=== PATIENT | male | born 1980 | race Caucasian/White ===

== ENCOUNTER → 2019-06-11 11:28 | Outpatient (BNVA) | payer MEDICAID, SELFPAY | PROVIDERS: Family Provider Nurse Practitioner; PCP Nurse Practitioner Family; Visit Provider Nurse Practitioner Family | DX: I10 Essential (primary) hypertension (principal); K21.9 Gastro-esophageal reflux disease without esophagitis; E78.5 Hyperlipidemia, unspecified; F41.9 Anxiety disorder, unspecified; F32.9 Major depressive disorder, single episode, unspecified; L30.9 Dermatitis, unspecified | CPT/HCPCS: 80053; 80061; 85025 ==

== ENCOUNTER → 2019-07-09 11:25 | Outpatient (BNVA) | payer MEDICAID, SELFPAY | PROVIDERS: Family Provider Nurse Practitioner; PCP Nurse Practitioner Family; Visit Provider Nurse Practitioner Family | DX: E87.5 Hyperkalemia (principal) | CPT/HCPCS: 80048; 85025 ==

== ENCOUNTER → 2019-08-22 15:45 | Outpatient (BNVA) | payer MEDICAID, SELFPAY | PROVIDERS: Family Provider Nurse Practitioner; PCP Nurse Practitioner Family; Visit Provider Family Medicine | DX: F41.9 Anxiety disorder, unspecified (principal); K21.9 Gastro-esophageal reflux disease without esophagitis; E87.5 Hyperkalemia; E78.5 Hyperlipidemia, unspecified; F32.9 Major depressive disorder, single episode, unspecified | CPT/HCPCS: 80048 ==

== ENCOUNTER 2019-11-19 09:48 | Emergency (ER) | payer MEDICAID, SELFPAY ==
[2019-11-19 09:49] VITALS: BP 129/87; PULSE 70; RESP 16; TEMP 36.5; O2SAT 93; BMI 27.7
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
[2019-11-19 10:21] LABS: Basophils % 0.3 %; Eosinophils # 0.3 10^3/uL (0.0-0.8); Eosinophils % 2.4 %; Hematocrit 44.9 % (42.0-52.0); Hemoglobin 15.1 g/dL (11.7-16.6); Lymphocytes # 1.9 10^3/uL (0.8-4.8); Lymphocytes % 14.6 %; Mean Corpuscular HGB Conc 33.6 g/dL (30.0-36.0); Mean Corpuscular Hemoglobin 30.9 pg (28.0-34.0); Mean Platelet Volume 10.5 fL (7.4-10.4); Monocytes # 0.9 10^3/uL (0.2-0.9); Monocytes % 6.6 %; Neutrophils # 9.83 10^3/uL (1.8-7.7); Neutrophils % 75.7 %; Nucleated Red Blood Cells % 0 %; Platelet Count 314 10^3/cmm (130-400); Red Blood Count 4.88 10^6/uL (4.1-5.3); Red Cell Distribution Width 13.3 % (12.1-15.1)
[2019-11-19 10:42] LABS: Alanine Aminotransferase 18 U/L (0-41); Albumin Level 4.4 g/dL (3.5-5.2); Alkaline Phosphatase 91 IU/L (40-130); Anion Gap 15.5 (5-19); Aspartate Amino Transferase 21 U/L (0-40); Blood Urea Nitrogen 13 mg/dL (6-20); Calcium 9.1 mg/dL (8.5-10.5); Carbon Dioxide 25 mmol/L (22-29); Chloride 104 mmol/L (98-107); Globulin 2.9 g/dL (1.3-4.6); Glomerular Filtration Rate 107.1 mL/min (90-130); Glucose 109 mg/dL (65-115); Osmolality Calculated 287 mOsm/kg (285-295); Potassium 4.5 mmol/L (3.5-5.1); Sodium 140 mmol/L (136-145); Total Bilirubin 0.3 mg/dL (0.15-1.2); Total Protein 7.3 g/dL (6.6-8.7)
== END 2019-11-19 11:13 | disposition left against medical advice (07) ==
LOC: ER 12-12 09:26
PROVIDERS: Emergency Provider Family Medicine; Family Provider Nurse Practitioner; PCP Nurse Practitioner Family
DX: R07.89 Other chest pain (principal); W22.11XA Striking against or struck by driver side automobile airbag, initial encounter; V99.XXXA Unspecified transport accident, initial encounter; E78.5 Hyperlipidemia, unspecified; Z86.19 Personal history of other infectious and parasitic diseases; F17.210 Nicotine dependence, cigarettes, uncomplicated
CPT/HCPCS: 12345; 36415; 73551; 73552; 73562; 80053; 85025; 99281

== ENCOUNTER → 2019-11-21 16:50 | Outpatient (BNVA) | payer MEDICAID, SELFPAY | PROVIDERS: Family Provider Nurse Practitioner; PCP Nurse Practitioner Family; Visit Provider Nurse Practitioner Family | DX: R07.9 Chest pain, unspecified (principal); F41.9 Anxiety disorder, unspecified; E78.5 Hyperlipidemia, unspecified; K21.9 Gastro-esophageal reflux disease without esophagitis; F32.9 Major depressive disorder, single episode, unspecified; R07.81 Pleurodynia; Z68.29 Body mass index [BMI] 29.0-29.9, adult; F17.210 Nicotine dependence, cigarettes, uncomplicated; Z71.89 Other specified counseling | CPT/HCPCS: 80053; 80061; 85025 ==

== ENCOUNTER → 2020-01-01 09:05 | Outpatient (BNVA) | payer MEDICAID, SELFPAY | PROVIDERS: Family Provider Nurse Practitioner; PCP Nurse Practitioner Family; Visit Provider Family Medicine | DX: R07.9 Chest pain, unspecified (principal) | CPT/HCPCS: 71046; 71100 ==

== ENCOUNTER 2020-05-11 19:47 | Inpatient (IN) | payer MEDICAID, SELFPAY ==
[2020-05-11 20:02] VITALS: BP 165/99; PULSE 82; RESP 16; TEMP 36.5; O2SAT 99; BMI 26.6
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
[2020-05-11 20:49] LABS: Basophils # 0.1 10^3/uL (0.0-0.1); Basophils % 0.5 %; Eosinophils # 0.3 10^3/uL (0.0-0.8); Eosinophils % 2.7 %; Hematocrit 45.3 % (42.0-52.0); Hemoglobin 14.6 g/dL (11.7-16.6); Lymphocytes % 17.6 %; Mean Corpuscular HGB Conc 32.2 g/dL (30.0-36.0); Mean Corpuscular Hemoglobin 29.3 pg (28.0-34.0); Mean Platelet Volume 10.6 fL (7.4-10.4); Monocytes # 0.8 10^3/uL (0.2-0.9); Monocytes % 7.5 %; Neutrophils % 71.3 %; Nucleated Red Blood Cells % 0 %; Platelet Count 339 10^3/cmm (130-400); Red Blood Count 4.98 10^6/uL (4.1-5.3); Red Cell Distribution Width 12.9 % (12.1-15.1); White Blood Count 11.1 10^3/uL (4.0-10.0)
[2020-05-11 21:04] LABS: Alanine Aminotransferase 16 U/L (0-41); Alkaline Phosphatase 107 IU/L (40-130); Anion Gap 12.1 (5-19); Aspartate Amino Transferase 25 U/L (0-40); Blood Urea Nitrogen 12 mg/dL (6-20); Calcium 9.3 mg/dL (8.5-10.5); Carbon Dioxide 28 mmol/L (22-29); Chloride 103 mmol/L (98-107); Globulin 3.1 g/dL (1.3-4.6); Glomerular Filtration Rate 82.3 mL/min (90-130); Glucose 107 mg/dL (65-115); Osmolality Calculated 288 mOsm/kg (285-295); Potassium 4.1 mmol/L (3.5-5.1); Sodium 139 mmol/L (136-145); Total Bilirubin 0.4 mg/dL (0.15-1.2); Total Protein 7.1 g/dL (6.6-8.7)
[2020-05-11 21:08] LABS: Acetaminophen < 5.0 ug/mL (10-30); Alcohol Level < 10 mg/dL (0-10); Salicylate < 0.3 mg/dL (3-10)
[2020-05-11 21:29] LABS: Amphetamines Screen Urine Positive (Negative); Barbiturates Screen Urine Negative (Negative); Benzodiazepines Screen Urine Negative (Negative); Cocaine Screen Urine Negative (Negative); Opiate Screen Urine Negative (Negative); PCP Screen Urine Negative (Negative); THC Screen Urine Positive (Negative)
[2020-05-12 00:41] VITALS: BP 130/86; PULSE 114; RESP 19; TEMP 37.3; O2SAT 95
[2020-05-12] MEDS: hyDROXYzine 25 mg Capsule 50 MG PO ×2 (01:45→20:02)
[2020-05-12] MEDS: OLANZapine 5 mg ODT PO (01:45)
[2020-05-12] MEDS: trazodone 50 mg Tablet PO ×2 (01:45→20:01)
[2020-05-12 06:00] VITALS: BP 103/66; PULSE 114; RESP 16; TEMP 37.3; O2SAT 96
[2020-05-12] MEDS: pantoprazole DR 40 mg Tablet PO ×2 (08:31→18:12)
[2020-05-12] MEDS: atorvastatin 40 mg Tablet 20 MG PO (08:31)
[2020-05-12] MEDS: citalopram 20 mg Tablet PO (08:32)
--- NOTE | 2020-05-12 10:04 | ECG_ITS ---
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 Measurements Intervals [place] Rate: 93 P: 80 NE: 147 QRS: 81 QRSD: 96 T: 56 QT: 352 QTc: 438 Interpretive Statements SINUS RHYTHM No previous ECG available for comparison Electronically Signed On 05-12-2020 18:53:39 PHOTOGRAPHER by Abimbola Aceves M.D. [id number]
--- NOTE | 2020-05-12 10:10 | P.HP_ITS ---
Providers/Chief Complaint Admitting Physician: Juan Jose Matthew DO Primary Care Provider: DAHLIA Turner Chief Complaint: SI HPI NPU History of Present Illness Manjit Lr is a 39 year old male with longstanding hx of polysubstance abuse, depression and anxiety presented to the ED by police secondary to suicidal ideation. Patient became agitated and stated that he was going to harm himself and started punching himself. There was some initial confusion that the patient had been put on a 96-hour hold but subsequently was allowed to sign in to the inpatient psychiatry unit. Patient was initially extremely agitated refusing to speak to the interviewer and started punching hall and posturing, threatening others and security was called. Patient subsequently was verbally and behaviorally redirected and participated in interview. Patient had punched hall with both hands and was also slapping and punching himself in the face causing his hand wound to reopen and bleed. Patient reports no current depressive symptoms but states that he has been under a lot of stress secondary to multiple stressors to include pressure from his landlord, family friction, ongoing financial issues. Patient also states that he was upset about medication changes that he been made over the years and not feeling like his medication had been working for him. Patient currently followed by primary care for his medication management of Celexa 20 mg daily whritchie escobedo she says has not been helping him as much as Celexa 20 mg twice daily. Patient reports recent methamphetamine use, states that he had been using IV dope every couple days for the past couple weeks secondary to increased stress. Patient also reports near daily marijuana use at bedtime after his Celexa dose was taken away in the evening. Patient unable to state when the last time he had had substance treatment but reports that he was looking into going to celebrate recovery. Patient currently denying any suicidal ideation or homicidal ideation. Patient denying any psychotic symptoms, denies any auditory hallucinations, denying any visual donations, denying any delusions. Of note, patient has remote history of hanging himself with reported history of anoxic brain injury although unable to verify on chart. Patient currently agreeable to inpatient hospitalization and medication st abilization as well as observation for any return of suicidal ideation. Review of Systems General: Reports: ROS unobtainable due to medical condition Meds NPU Home Medications Medication Instructions Recorded Confirmed Last Taken Type atorvastatin 20 mg tablet 20 mg PO DAILY #30 tab 02/18/20 05/12/20 Unknown Rx hydroxyzine pamoate 25 mg capsule 25 mg PO BID PRN #60 cap 02/18/20 05/12/20 Unknown Rx omeprazole 20 mg capsule,delayed 20 mg PO BID #60 cap 02/18/20 05/12/20 Unknown Rx release citalopram 20 mg tablet 20 mg PO DAILY #30 tab 05/05/20 05/12/20 Unknown Rx Allergies Allergy/AdvReac Type Severity Reaction Status Date / Time morphine Allergy Unknown Unknown Verified 11/21/19 14:46 acetaminophen Allergy ALGY-Swell Verified 11/21/19 14:46 Lip/Tongue/Throat aspirin Allergy ALGY-Rash Verified 11/21/19 14:46 bacitracin Allergy ALGY-Hives Verified 05/11/20 20:09 [From Triple Antibiotic] insect venom Allergy ALGY-Anaphy Verified 11/21/19 14:46 laxis neomycin Allergy ALGY-Hives Verified 05/11/20 20:09 [From Triple Antibiotic] Penicillins Allergy ALGY-Rash Verified 11/21/19 14:46 polymyxin B Allergy ALGY-Hives Verified 05/11/20 20:09 [From Triple Antibiotic] PFSH NPU PFSH: Medical History (Updated 05/12/20 @ 10:33 by Juan Jose Matthew DO) Anxiety and depression Hepatitis C Hyperlipidemia Surgical History History of excision of pilonidal cyst Hx of arthroscopy of left knee Hx of cholecystectomy Hx of rhinoplasty Family History Grandmother Diabetes Hypertension Mother Diabetes Father Hypertension Social History Smoking and tobacco status: current every day smoker cigarettes Packs smoked per day: 1 Years cigarettes smoked: 20 Second hand smoke exposure: Yes Alcohol intake: never Lives independently: Yes Household members: spouse Housing: House Marital status: Current occupational status: disabled History of recent travel: No Current gender identity: Male Other Psychiatric History: Other Psychiatric History: Patient does not provide details about past psychiatric history other than he had previously been seen by a mental health prescriber and most recently got his medication from his primary care Does not provide information about past psychiatric hospitalizations Reports remote history of trying to hang himself in the context of dope intoxication Mental Status Exam MSE Comments: Disheveled, unkempt, unshaven, tired appearing with swollen right eye with bruising, irritable, poor rapport with interviewer but subsequently calm and cooperative, fair eye contact Psychomotor activity was occasionally restless during interview, no agitation during interview although previously per above verbally and physically agitated requiring redirection Speech is normal rate and volume, spontaneous, fair articulation, not pressured I am mad, congruent affect, labile Alert and oriented to person, place, time, situation Remote and recent memory is fair at best, limited assessment secondary to participation in interview Concentration is fair at best per interview Intellectual functioning appears to be below to average at best based on vocabulary, interview Thought process, linear, no flight of ideas, no looseness of association Thought content, some perseveration about events leading to his hospitalization, overvalued ideas, no stated delusions, does not appear to be attending to any internal stimuli, no suicidal or homicidal ideation Insight and judgment appear to be limited to fair at best based on patient's lack of understanding of the events leading to his hospitalization as well as safety concerns regarding recent events and need for current and post discharge treatment Vitals/I&O/Wt Last Vital Signs Temp 99.1 F 05/12/20 06:00 Pulse 114 H 05/12/20 06:00 Resp 16 05/12/20 06:00 BP 103/66 05/12/20 06:00 Pulse Ox 96 05/12/20 06:00 Weight last 48 hrs Weight 104.326 kg Data NPU : 05/11/20 20:15 05/11/20 20:15 A&P Assessment and plan (1) Suicidal ideation: Status: Acute (2) Polysubstance abuse: Status: Acute (3) Methamphetamine abuse: Status: Acute (4) Cannabis abuse: Status: Acute (5) Adjustment disorder with mixed disturbance of emotions and conduct: Status: Acute Additional A&P Information Patient initially presented to the emergency department by police on what was understood to be a 96-hour hold for erratic behavior and suicidal ideation with self-harm behavior of punching himself in the head although subsequently allowed to sign in from the emergency department. Patient became extremely agitated punching holes in the wall and threatening others. Patient subsequently redirected and agreeable to evaluation, medication stabilization and would likely benefit from adjustment of his antidepressant targeting mood and affect lability. Of note, patient has history of anoxic brain injury per report (due to previous hanging attempt several years ago?) and continues to abuse substances further exacerbated his clinical picture. VOLUNTARY ADMIT to inpatient psychiatry INCREASED to citalopram 20 mg twice daily targeting depressive and anxiety symptoms RESTART home medication X-ray left and right hand to rule out fractures ECG for baseline QTC Discussed need to abstain from the use of substances with patient Coordinate with social work for post discharge substance counseling and psychiatric follow-up Involuntary Hold Information 96 Hour Hold: 96 Hour Involuntary Admission: No Attestations NPU Medical Necessity Statement*: Patient requires psychiatric hospitalization for observation as well as medication stabilization and coordination for safe discharge to include post discharge psychiatric follow-up. Anticipate patient's hospital stay to exceed 2 midnights Time Spent in Patient Care: Greater than 35 minutes (>than 50% of time spent in counselling and/or direct pt care on unit) . 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
--- NOTE | 2020-05-12 10:14 | PC.NURSE ---
Code 10 Patient Behavior Patient became agitated and started pacing the halls. Stating he wanted to go home, explained that he would need to talk to the physician. When physician attempted to speak with him about a plan of his staying one for night he became more agitated and started punching the hall and his face. Started yelling that he was being lied to. A code 10 was called at 0921. Patient was offered medications to calm his nerves and he refused. He was yelling at the physician and security and staff. He continued pacing, punching holes in hall and punching his face. Verbal de escalation was not working at this point so a call was made to [place] [employer]. Two officers arrived at 0937 and talked with the patient. He began to calm and agreed to have a sit down appropriate conversation with the physician to discuss a change in his medication at 0945. Code 10 successfully verbally de escalated.
--- NOTE | 2020-05-12 10:32 | XR_ITS ---
WS: [id number] RIGHT HAND: 3 VIEW(S) TECHNIQUE: PA, oblique and lateral. HISTORY: punching hall COMPARISON: None available. No acute fracture or dislocation. Moderate soft tissue edema along the medial hand. No acute fracture is identified. XR/XR hand RT min 3V* [id number] IMPRESSION: Soft tissue edema along the medial hand.
--- NOTE | 2020-05-12 10:32 | XR_ITS ---
WS: [id number] LEFT HAND: 3 VIEW(S) TECHNIQUE: PA, oblique and lateral. HISTORY: punching hall COMPARISON: 12/18/2018 No acute fracture or dislocation. Soft tissue edema along the medial hand. There is an osseous density which is well-corticated medial to the hamate. No acute fracture. XR/XR hand LT min 3V* [id number] IMPRESSION: Soft tissue edema along the medial hand. No fracture.
[2020-05-12 14:00] VITALS: BP 136/82; PULSE 82; RESP 18; TEMP 36.4; O2SAT 96
[2020-05-12] MEDS: hyDROXYzine 25 mg Capsule PO (15:28)
[2020-05-12 19:45] VITALS: BP 145/80; PULSE 82; RESP 18; TEMP 36.5; O2SAT 97
[2020-05-12] MEDS: OLANZapine 10 mg TABLET PO (20:02)
[2020-05-13 06:26] VITALS: BP 126/77; PULSE 100; RESP 18; TEMP 36.6; O2SAT 95
[2020-05-13] MEDS: citalopram 20 mg Tablet PO (07:33)
[2020-05-13] MEDS: atorvastatin 40 mg Tablet 20 MG PO (07:33)
[2020-05-13] MEDS: pantoprazole DR 40 mg Tablet PO (07:34)
[2020-05-13 07:48] VITALS: BP 126/77; PULSE 100; RESP 18; TEMP 36.6; O2SAT 95
--- NOTE | 2020-05-13 08:05 | P.DS_ITS ---
Diagnoses at Discharge Discharge Diagnosis (1) Suicidal ideation: Status: Acute (2) Polysubstance abuse: Status: Acute (3) Methamphetamine abuse: Status: Acute (4) Cannabis abuse: Status: Acute (5) Adjustment disorder with mixed disturbance of emotions and conduct: Status: Acute Reason for Visit Reason for Visit: SI Hospital Course Hospital Course 39 year old male with longstanding hx of polysubstance abuse, depression and anxiety presented to the ED by police secondary to suicidal ideation. Prior to being brought to the hospital by police he had become agitated and stated that he was going to harm himself and started punching himself. There was some initial confusion that the patient had been put on a 96-hour hold but subsequently was allowed to sign in to the inpatient psychiatry unit. At the time of initial evaluation the patient was initially extremely agitated refusing to speak to the interviewer and started punching hall and posturing, threatening others and security was called. Patient subsequently was verbally and behaviorally redirected and participated in interview. Patient had punched hall with both hands and was also slapping and punching himself in the face ca using his hand wound to reopen and bleed. Patient had no subsequent behavioral disturbances and was redirectable but continued to pace hallways intermittently. X-rays were obtained for his left and right hands but did not demonstrate any fractures. He was started on his home medication of citalopram 20 mg daily which she tolerated well with no reports of any medication side effects. There was some thought of increasing his citalopram dose to citalopram 20 mg twice daily which he reports he had previously been on but had not made this increase secondary to not having in the appropriate amount of time to monitor. Patient would also benefit from starting prazosin 1 mg at bedtime targeting nightmares but was not started secondary to not having adequate amount of time to monitor this medication change. Patient requested to leave the hospital secondary to having court the following morning and at that time did not endorse any suicidal ideation or demonstrate any psychotic behavior or any sequela from his recent substance use. He did not appear to pose an imminent threat of harm to self or others at the time of discharge. Low to moderate risk of harm to self or others given no current suicidal ideation or homicidal ideation and no current psychotic symptoms and no current mood symptoms although patient's risk continues to be elevated secondary to reported history of anoxic brain injury which likely leads to mood lability as well as if he continues to abuse substances and is noncompliant with medication medication management follow-up leading to unexpected, impulsive behavior. Patient has a longstanding history of impulsive behavior and behavioral disturbances exacerbated by ongoing substance use which cannot be predicted. Risk medication included psychiatric hospitalization for observation for any worsening suicidal ideation or mood symptoms; coordination for post discharge follow-up; recommendation to abstain from the use of substances and alcohol as well as the need for compliance with his medication, medication management and substance counseling follow-up. Patient was able to communicate his understanding of the above recommendations to include medication and medication management compliance; the need to abstain from the use of substances and alcohol as well as the need for substance counseling/treatment in order to further mitigate his risk of harm to self and others. Involuntary Hold Information 96 Hour Hold: 96 Hour Involuntary Admission: No Mental Status Exam MSE Comments: Appropriately dressed, unkempt, swollen right eye with bruising, calm, cooperative, interactive, polite, good eye contact Psychomotor activity is neither increased nor decreased, no agitation Speech is normal rate and volume, spontaneous, fair articulation, not pressured I am feeling better, congruent affect, not labile Alert and oriented to person, place, time, situation Memory and concentration appear to be fair to intact per interview Intellectual functioning appears to be below to average at best based on vocabulary, interview Thought process, linear, no flight of ideas, no looseness of associations Thought content, no delusions, no hallucinations, no suicidal or homicidal ideation Insight and judgment appear to be fair to intact Discharge Data Data Completed and Pending: Completed Studies During Hospitalization Category Date Time Status CT facial bones w o con* [id number] Urgen t Cat Scan 05/11/20 20:15 Completed XR hand LT min 3V * [id number] Routine Exams 05/12/20 10:32 Completed XR hand RT min 3V * [id number] Routine Exams 05/12/20 10:32 Completed Vitals: Last Vital Signs Temp 97.8 F 05/13/20 07:48 Pulse 100 05/13/20 07:48 Resp 18 05/13/20 07:48 BP 126/77 05/13/20 07:48 Pulse Ox 95 05/13/20 07:48 Discharge Plan Discharge Patient Disposition: Home Condition: Stable Prescriptions: Continued atorvastatin [Lipitor] 20 mg tablet 20 mg PO DAILY Qty: 30 RF: 2 omeprazole 20 mg capsule,delayed release(DR/EC) 20 mg PO BID Qty: 60 RF: 2 hydroxyzine pamoate 25 mg capsule 25 mg PO BID PRN (Reason: anxiety) Qty: 60 RF: 2 citalopram 20 mg tablet 20 mg PO DAILY Qty: 30 RF: 0 Discharge Orders: Discharge Order (Routine); Ordered 05/13/20 Ordered By: Juan Jose Matthew Referrals: [facility] [Other] (Held at [facility] at 7pm) [facility] [Outside] (Intake paperwork completed while at the hospital. Staff will call you with an appointment once your referral has been processed.) [facility] [Outside] (Resource for inpatient and outpatient substance abuse treatment.) Leena Munguia FNP [Primary Care Provider] - Discharge Diet: Regular Discharge Activity: Resume usual activity Patient Instructions: Suicidal Ideation Activity Restrictions/Additional Instructions: Medicaid Transport ([employer]): For transportation to appointments call at least 5 days in advance of the appointment. When using Medicaid Transport/[employer] you will need the following information when requesting a ride: - name, date of , address, phone number, and Medicaid number -address, and phone number of where you are going; -date and time of the appointment; -any special needs, such as wheelchair van If for some reason the ride does not show up you may call the Where's My Ride number at Discharge Attestations NPU Time Spent in Discharge Care*: greater than 30 min Status at Discharge: Cognitive status at discharge: cognitively intact , Behavioral status at discharge: cooperative , Functional status at discharge: independent ambulation Overall status at discharge: patient is back to baseline Coding Level of Care Code Acute Director Medical Economics for [employer] Fwd Diagnoses Suicidal ideation R45.851 Polysubstance abuse F19.10 Methamphetamine abuse F15.10 Cannabis abuse F12.10 Adjustment disorder with mixed disturbance of emotions and conduct F43.25
[2020-05-13 08:13] VITALS: BP 132/88; PULSE 80; RESP 18; TEMP 36.6; O2SAT 96
[2020-05-13 08:14] VITALS: BP 132/88; PULSE 80; RESP 18; TEMP 36.6; O2SAT 96
--- NOTE | 2020-05-13 09:59 | PC.RESP ---
SMOKING CESSATION INFORMATION SENT TO PATIENT.
== END 2020-05-13 08:20 | disposition home or self-care (01) | DRG 882 ==
LOC: ER 22:24 → NP 05-12 07:04
PROVIDERS: Admitting Provider Psychiatry & Neurology Psychiatry; Emergency Provider Physician Assistant; PCP Nurse Practitioner Family; Visit Provider Psychiatry & Neurology Psychiatry
DX: F43.25 Adjustment disorder with mixed disturbance of emotions and conduct (principal); R45.851 Suicidal ideations; F15.10 Other stimulant abuse, uncomplicated; F12.10 Cannabis abuse, uncomplicated; F41.8 Other specified anxiety disorders; Z86.19 Personal history of other infectious and parasitic diseases; E78.5 Hyperlipidemia, unspecified; F17.210 Nicotine dependence, cigarettes, uncomplicated; S69.92XA Unspecified injury of left wrist, hand and finger(s), initial encounter; S69.91XA Unspecified injury of right wrist, hand and finger(s), initial encounter; W22.01XA Walked into wall, initial encounter
CPT/HCPCS: 12345; 70486; 73130; 80053; 80306; 80307; 85025; 93005; 99284

== ENCOUNTER 2020-05-24 17:47 | Inpatient (IN) | payer MEDICAID, SELFPAY ==
[2020-05-24] VITALS (16 sets, daily range): BP systolic 116–139; BP diastolic 59–91; PULSE 75–92; RESP 12–23; TEMP 36.4; O2SAT 92–96; BMI 27.7
--- NOTE | 2020-05-24 17:50 | CTR_ITS ---
PROCEDURE INFORMATION: Exam: CT Head Without Contrast Exam date and time: 05/24/2020 6:04 PM Age: 39 years old Clinical indication: Injury or trauma; Blunt trauma (contusions or hematomas); Consciousness not specified; Prior surgery; Surgery date: 6+ months; Surgery type: Rhino; Patient HX: PT was hitting head against a concrete wall - later self inflicted strangulation; Additional info: Strangualtion TECHNIQUE: Imaging protocol: Computed tomography of the head without contrast. Radiation optimization: All CT scans at this facility use at least one of these dose optimization techniques: automated exposure control; mA and/or kV adjustment per patient size (includes targeted exams where dose is matched to clinical indication); or iterative reconstruction. COMPARISON: CT head wo con* [id number] 03/18/2018 5:31 PM RADIATION DOSE METRICS: Total DLP (mGy-cm): 994.99 FINDINGS: Brain: Normal. No hemorrhage. Unremarkable white matter. No mass effect. Cerebral ventricles: No ventriculomegaly. Bones/joints: Unremarkable. No acute fracture. Paranasal sinuses: Visualized sinuses are unremarkable. No fluid levels. Mastoid air cells: Visualized mastoid air cells are well aerated. Soft tissues: There is possibly a small hematoma in the midline of the frontal scalp. CT/CT head wo con* [id number] IMPRESSION: 1. Negative for intracranial injury. 2. Query small midline superior frontal scalp hematoma. Radiation Dose CTDIVOL = (mGy): DLP = 994.99 (mGy-cm)
--- NOTE | 2020-05-24 17:50 | CTR_ITS ---
PROCEDURE INFORMATION: Exam: CT Neck With Contrast Exam date and time: 05/24/2020 6:04 PM Age: 39 years old Clinical indication: Injury or trauma; Constriction/strangulation; Patient HX: PT was hitting head against a concrete wall - later self inflicted strangulation TECHNIQUE: Imaging protocol: Computed tomography images of the neck with intravenous contrast. Radiation optimization: All CT scans at this facility use at least one of these dose optimization techniques: automated exposure control; mA and/or kV adjustment per patient size (includes targeted exams where dose is matched to clinical indication); or iterative reconstruction. Contrast material: OMNI 300; Contrast volume: 95 ml; Contrast route: INTRAVENOUS (IV); COMPARISON: CT cervical spin wo con* [id number] 05/24/2020 6:06 PM RADIATION DOSE METRICS: Total DLP (mGy-cm): 812.14 FINDINGS: Nasopharynx: Unremarkable. Oropharynx: Unremarkable. No significant tonsillar enlargement. Hypopharynx: Unremarkable. Larynx: Unremarkable. Normal epiglottis. Retropharyngeal space: Unremarkable. Submandibular/Parotid glands: Normal. Glands are normal in size. Thyroid: Normal. No enlarged or calcified nodules. Lymph nodes: Unremarkable. No lymphadenopathy. Trachea: Visualized trachea is unremarkable. Lungs: Unremarkable as visualized. Bones/joints: Unremarkable. No acute fracture. Soft tissues: Unremarkable. No significant soft tissue swelling. CT/CT neck w con* [id number] IMPRESSION: 1. No acute findings. 2. Unremarkable soft tissues of the neck. Radiation Dose CTDIVOL = (mGy): DLP = 812.14 (mGy-cm)
--- NOTE | 2020-05-24 17:50 | XRR_ITS ---
PROCEDURE INFORMATION: Exam: XR Chest, 1 View Exam date and time: 05/24/2020 6:17 PM Age: 39 years old Clinical indication: Dyspnea; Additional info: Hypoxia TECHNIQUE: Imaging protocol: XR of the chest Views: 1 view. COMPARISON: CR XR chest 2V* [id number] 01/01/2020 9:08 AM FINDINGS: Lungs: Unremarkable. No consolidation. Pleural spaces: Unremarkable. No pleural effusion. No pneumothorax. Heart/Mediastinum: Unremarkable. No cardiomegaly. Bones/joints: Unremarkable. XR/XR chest 1V portable [id number] IMPRESSION: No acute findings.
--- NOTE | 2020-05-24 17:50 | ECG_ITS ---
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 Measurements Intervals [place] Rate: 76 P: 70 TN: 155 QRS: 85 QRSD: 108 T: 57 QT: 391 QTc: 440 Interpretive Statements SINUS RHYTHM POSSIBLE LEFT ATRIAL ENLARGEMENT [-0.1mV P WAVE IN V1/V2] Compared to ECG 05/12/2020 10:29:17 No significant changes Electronically Signed On 05-25-2020 17:04:13 SCREEN PRINTING PRESS OPERATOR by Miah Aguilar M.D. [email or web address]
--- NOTE | 2020-05-24 17:54 | W.ED.PSYCH ---
Documented by User: Bobo Valdez DO 05/26/20 16:14 HPI - Psych General: Chief Complaint: Trauma Stated Complaint: Hanging Time Seen by Provider: 05/24/20 17:50 History of Present Illness: HPI Narrative: 39-year-old male brought in by EMS from local custodial. He was witnessed attempting to hang himself with a metal phone cord into custodial. He was in his cell there is about a minute and a half where he was hanging himself with a cord. Evidently by protocol they were not able to enter the cell without officer present. He is awake although somewhat sedate on arrival here. He has david on his neck. He does not answer many questions at this point. MD complaint: suicidal ideation and altered mental status Onset (ago): minute(s) Duration: constant Relieving factors: none Exacerbating factors: none Associated psychiatric symptoms: depression and suicidal ideation Associated symptoms: Reports suicidal ideation Treatments prior to arrival: placed on mental health hold If self harm: admits thoughts of self harm, has acted on plan and self-inflicted trauma Review of Systems General: Reports: ROS unobtainable due to medical condition Psych: Reports: suicidal ideation [facility] ED PFSH: Medical History (Updated 05/26/20 @ 00:00 by ) Adjustment disorder with mixed disturbance of emotions and conduct Anxiety and depression Hepatitis C Hyperlipidemia Surgical History History of excision of pilonidal cyst Hx of arthroscopy of left knee Hx of cholecystectomy Hx of rhinoplasty Family History Grandmother Diabetes Hypertension Mother Diabetes Father Hypertension Social History Smoking and tobacco status: current every day smoker cigarettes Packs smoked per day: 1 Years cigarettes smoked: 20 Second hand smoke exposure: Yes Alcohol intake: never Lives independently: Yes Household members: spouse Housing: House Marital status: Current occupational status: disabled History of recent travel: No Current gender identity: Male Physical Exam HENMT: COMMON NORMALS: normocephalic, atraumatic and hearing grossly normal bilaterally HEAD & SCALP: normocephalic and atraumatic Eye: COMMON NORMALS: Equal, round and reactive pupils present, EOMs intact bilaterally, conjunctivae normal and no scleral icterus CONJUNCTIVA: Yes conjunctivae normal PUPIL: Yes Equal, round and reactive pupils present Neck/C-Spine: OTHER: Irritation david primarily on the anterior and left lateral neck mechanical pattern consistent with reported strangulation with metallic payphone cord Lymph: LYMPHATIC: no lymphadenopathy noted and no lymphedema noted Resp: COMMON NORMALS: normal respiratory effort, No retractions, No use of accessory muscles and clear to auscultation bilaterally AUSCULTATION: clear to auscultation bilaterally Cardio: COMMON NORMALS: regular rate, regular rhythm and No murmurs present (Cardio) RATE: regular rate RHYTHM: regular rhythm GI: COMMON NORMALS: Soft to palpation and No hepatosplenomegaly present AUSCULTATION: Yes normoactive bowel sounds PALPATION: Yes Soft to palpation, No Tenderness to palpation present (GI), No Guarding due to palpation present (GI) and Yes No hepatosplenomegaly present Extremity: COMMON NORMALS: normal to inspection, capillary refill normal, no clubbing, cyanosis or edema, no calf tenderness and no pedal edema MDM - Psych MDM Narrative: Medical decision making narrative: Care turned over to Dr. Cody at change of shift see his note for final diagnosis disposition Lab Data: Labs: Lab Results 05/24/20 05/24/20 05/24/20 Range/Units 17:45 18:10 18:10 WBC 12.3 H (4.0-10.0) 10^3/ uL RBC 5.35 H (4.1-5.3) 10^6/u L Hgb 15.6 (11.7-16.6) g/dL Hct 48.9 (42.0-52.0) % MCV 91.4 (80-94) fL MCH 29.2 (28.0-34.0) pg MCHC 31.9 (30.0-36.0) g/dL RDW 13.2 (12.1-15.1) % Plt Count 391 (130-400) 10^3/c mm MPV 10.1 (7.4-10.4) fL Neut % (Auto) 75.9 % Lymph % (Auto) 15.3 % [place] % (Auto) 6.7 % Eos % (Auto) 1.5 % Baso % (Auto) 0.3 % Neut # (Auto) 9.36 H (1.8-7.7) 10^3/u L Lymph # (Auto) 1.9 (0.8-4.8) 10^3/u L [place] # (Auto) 0.8 (0.2-0.9) 10^3/u L Eos # (Auto) 0.2 (0.0-0.8) 10^3/u L Baso # (Auto) 0.0 (0.0-0.1) 10^3/u L Nucleated RBC % (a uto) 0 % Nucleated RBCs # 0.0 /100WBC Specimen Type Arterial Sample Site Radial, left ABG pH 7.40 (7.35-7.45) ABG pCO2 40.0 (35-45) mmHg ABG pO2 78.8 L (80.0-100.0) mmH g ABG HCO3 25.0 (22-26) mmol/L ABG O2 Saturation 96.1 ABG Base Excess 0.2 (-2.0-2.0) mmol/ L Keyshawn Test Pos A-a O2 Gradient 2.4 L (5-10) mmHg Hematocrit 48.1 (42-52) % Hgb O2 Saturation 93.2 L (95-100) % Carboxyhemoglobin 2.1 (0.4-20.1) %THgb Methemoglobin 0.9 (0.4-1.5) % Total Hemoglobin 15.7 (14-18) g/dL Sodium 139.0 140 (131-143) mmol/L Potassium 3.8 4.2 (3.5-5.0) mmol/L Glucose 123.0 H 118 H (70-115) mg/dL Ionized Calcium 1.2 (1.1-1.4) mmol/L O2 Delivery Device Room air FiO2 21.0 % Package Yarns Drying Machine Operator ID [id number] Chloride 102 (98-107) mmol/L Carbon Dioxide 25 (22-29) mmol/L Anion Gap 17.2 (5-19) BUN 16 (6-20) mg/dL Creatinine 0.9 (0.7-1.2) mg/dL GFR Calculation 93.0 (90-130) mL/min Calculated Osmolal ity 292 (285-295) mOsm/k g Calcium 9.4 (8.5-10.5) mg/dL Total Bilirubin 0.6 (0.15-1.2) mg/dL AST 22 (0-40) U/L ALT 17 (0-41) U/L Alkaline Phosphata se 115 (40-130) IU/L Total Protein 7.8 (6.6-8.7) g/dL Albumin 4.1 (3.5-5.2) g/dL Globulin 3.7 (1.3-4.6) g/dL TSH 2.47 (0.27-4.20) uIU/ mL Salicylates < 0.3 L (3-10) mg/dL Acetaminophen < 5.0 L (10-30) ug/mL Ethyl Alcohol < 10 (0-10) mg/dL Discharge Plan Discharge Patient Disposition: Admitted As Inpatient Admit Provider: Christian Smith Clinical Impression: Involuntary commitment, Suicide attempt Condition: Stable Discharge Diet: Advance as tolerated Discharge Activity: Resume usual activity Coding Level of Care Code ED Nurse Consultant for Chg Fwd Exam Detailed Documented by User: Jeferson Cody DO 05/25/20 03:52 HPI - Psych General: Chief Complaint: Trauma Stated Complaint: Hanging Time Seen by Provider: 05/24/20 17:50 [facility] ED PFSH: Medical History (Updated 05/26/20 @ 00:00 by ) Adjustment disorder with mixed disturbance of emotions and conduct Anxiety and depression Hepatitis C Hyperlipidemia Surgical History History of excision of pilonidal cyst Hx of arthroscopy of left knee Hx of cholecystectomy Hx of rhinoplasty Family History Grandmother Diabetes Hypertension Mother Diabetes Father Hypertension Social History Smoking and tobacco status: current every day smoker cigarettes Packs smoked per day: 1 Years cigarettes smoked: 20 Second hand smoke exposure: Yes Alcohol intake: never Lives independently: Yes Household members: spouse Housing: House Marital status: Current occupational status: disabled History of recent travel: No Current gender identity: Male MDM - Psych MDM Narrative: Medical decision making narrative: 39-year-old male checked out to me by Dr. Valdez. This gentleman evidently attempted to hang himself inside the hydraulic lift operator's office in [facility]. During his stay in the ER, he woke up and was very agitated and combative. He was given Ativan here. He seemed to calm down, and participated in testing. His head CT is negative as well as neck soft tissue and cervical spine CTs. He has mild elevation in his white blood cell count that is likely demargination. His blood gas looked essentially normal. He is breathing room air. I spoke with psychiatry. Their concern is that he was quite destructive to the facility several days ago when he was admitted down there, and the resources are already stretched. Also of concern is the possibility of development of airway edema following strangulation. We spoke with the hospitalist team who will admit the patient to the ICU for the night for close observation with psychiatric consultation in the morning. Lab Data: Labs: Lab Results 05/24/20 05/24/20 05/24/20 Range/Units 17:45 18:10 18:10 WBC 12.3 H (4.0-10.0) 10^3/ uL RBC 5.35 H (4.1-5.3) 10^6/u L Hgb 15.6 (11.7-16.6) g/dL Hct 48.9 (42.0-52.0) % MCV 91.4 (80-94) fL MCH 29.2 (28.0-34.0) pg MCHC 31.9 (30.0-36.0) g/dL RDW 13.2 (12.1-15.1) % Plt Count 391 (130-400) 10^3/c mm MPV 10.1 (7.4-10.4) fL Neut % (Auto) 75.9 % Lymph % (Auto) 15.3 % [place] % (Auto) 6.7 % Eos % (Auto) 1.5 % Baso % (Auto) 0.3 % Neut # (Auto) 9.36 H (1.8-7.7) 10^3/u L Lymph # (Auto) 1.9 (0.8-4.8) 10^3/u L [place] # (Auto) 0.8 (0.2-0.9) 10^3/u L Eos # (Auto) 0.2 (0.0-0.8) 10^3/u L Baso # (Auto) 0.0 (0.0-0.1) 10^3/u L Nucleated RBC % (a uto) 0 % Nucleated RBCs # 0.0 /100WBC Specimen Type Arterial Sample Site Radial, left ABG pH 7.40 (7.35-7.45) ABG pCO2 40.0 (35-45) mmHg ABG pO2 78.8 L (80.0-100.0) mmH g ABG HCO3 25.0 (22-26) mmol/L ABG O2 Saturation 96.1 ABG Base Excess 0.2 (-2.0-2.0) mmol/ L [place] Test Pos A-a O2 Gradient 2.4 L (5-10) mmHg Hematocrit 48.1 (42-52) % Hgb O2 Saturation 93.2 L (95-100) % Carboxyhemoglobin 2.1 (0.4-20.1) %THgb Methemoglobin 0.9 (0.4-1.5) % Total Hemoglobin 15.7 (14-18) g/dL Sodium 139.0 140 (131-143) mmol/L Potassium 3.8 4.2 (3.5-5.0) mmol/L Glucose 123.0 H 118 H (70-115) mg/dL Ionized Calcium 1.2 (1.1-1.4) mmol/L O2 Delivery Device Room air FiO2 21.0 % Package Yarns Drying Machine Operator ID [id number] Chloride 102 (98-107) mmol/L Carbon Dioxide 25 (22-29) mmol/L Anion Gap 17.2 (5-19) BUN 16 (6-20) mg/dL Creatinine 0.9 (0.7-1.2) mg/dL GFR Calculation 93.0 (90-130) mL/min Calculated Osmolal ity 292 (285-295) mOsm/k g Calcium 9.4 (8.5-10.5) mg/dL Total Bilirubin 0.6 (0.15-1.2) mg/dL AST 22 (0-40) U/L ALT 17 (0-41) U/L Alkaline Phosphata se 115 (40-130) IU/L Total Protein 7.8 (6.6-8.7) g/dL Albumin 4.1 (3.5-5.2) g/dL Globulin 3.7 (1.3-4.6) g/dL TSH 2.47 (0.27-4.20) uIU/ mL Salicylates < 0.3 L (3-10) mg/dL Acetaminophen < 5.0 L (10-30) ug/mL Ethyl Alcohol < 10 (0-10) mg/dL Discharge Plan Discharge Patient Disposition: Admitted As Inpatient Admit Provider: Christian Smith Clinical Impression: Involuntary commitment, Suicide attempt Condition: Stable Discharge Diet: Advance as tolerated Discharge Activity: Resume usual activity Coding Level of Care Code ED Nurse Consultant for Amarilys Fwd Exam Detailed
[2020-05-24 17:56] LABS: Alveolar-Arterial Oxygen Gradi 2.4 mmHg (5-10); Arterial Blood Gas Hematocrit 48.1 % (42-52); Base Excess ABG 0.2 mmol/L (-2.0-2.0); Blood Gas Allen Test Pos; Blood Gas Sample Site Radial, left; Blood Gas Sample Type Arterial; Carboxyhemoglobin 2.1 %THgb (0.4-20.1); HGB O2 Sat 93.2 % (95-100); Ionized Calcium Level - ABG 1.2 mmol/L (1.1-1.4); Methemoglobin 0.9 % (0.4-1.5); Oxygen Device ROOM AIR; Oxygen Saturation ABG 96.1; PO2 ABG 78.8 mmHg (80.0-100.0); Potassium Level - ABG 3.8 mmol/L (3.5-5.0); Total Hemoglobin 15.7 g/dL (14-18)
--- NOTE | 2020-05-24 17:56 | CTR_ITS ---
PROCEDURE INFORMATION: Exam: CT Cervical Spine Without Contrast Exam date and time: 05/24/2020 6:04 PM Age: 39 years old Clinical indication: Injury or trauma; Constriction/strangulation; Patient HX: PT was hitting head against a concrete wall - later self inflicted strangulation TECHNIQUE: Imaging protocol: Computed tomography images of the cervical spine without contrast. Radiation optimization: All CT scans at this facility use at least one of these dose optimization techniques: automated exposure control; mA and/or kV adjustment per patient size (includes targeted exams where dose is matched to clinical indication); or iterative reconstruction. COMPARISON: No relevant prior studies available. RADIATION DOSE METRICS: Total DLP (mGy-cm): 730.68 FINDINGS: Vertebrae: No fractures. No vertebral subluxation or dislocation. Moderate severity disc height loss at C5-C6. Severe disc height loss at C6-C7. Mildly exaggerated lower cervical spine kyphosis. No widening of facet joints or disc spaces. Other bones/joints: No lytic bone lesion. Osseous mineralization appears unremarkable. Soft tissues: Unremarkable. Lungs: Lung apices are normal. CT/CT cervical spin wo con* [id number] IMPRESSION: No acute cervical spine injury. Radiation Dose CTDIVOL = (mGy): DLP = 730.68 (mGy-cm)
[2020-05-24] MEDS: LORazepam 2 mg/mL INJ 1 mL IM (18:06)
[2020-05-24 18:17] LABS: Basophils % 0.3 %; Eosinophils # 0.2 10^3/uL (0.0-0.8); Eosinophils % 1.5 %; Hematocrit 48.9 % (42.0-52.0); Hemoglobin 15.6 g/dL (11.7-16.6); Lymphocytes # 1.9 10^3/uL (0.8-4.8); Lymphocytes % 15.3 %; Mean Corpuscular HGB Conc 31.9 g/dL (30.0-36.0); Mean Corpuscular Hemoglobin 29.2 pg (28.0-34.0); Mean Corpuscular Volume 91.4 fL (80-94); Mean Platelet Volume 10.1 fL (7.4-10.4); Monocytes # 0.8 10^3/uL (0.2-0.9); Monocytes % 6.7 %; Neutrophils # 9.36 10^3/uL (1.8-7.7); Neutrophils % 75.9 %; Nucleated Red Blood Cells % 0 %; Platelet Count 391 10^3/cmm (130-400); Red Blood Count 5.35 10^6/uL (4.1-5.3); Red Cell Distribution Width 13.2 % (12.1-15.1); White Blood Count 12.3 10^3/uL (4.0-10.0)
[2020-05-24] MEDS: iohexol 300 mg/mL 100 mL Btl IV (18:18)
[2020-05-24 18:49] LABS: Alanine Aminotransferase 17 U/L (0-41); Albumin Level 4.1 g/dL (3.5-5.2); Alkaline Phosphatase 115 IU/L (40-130); Anion Gap 17.2 (5-19); Aspartate Amino Transferase 22 U/L (0-40); Blood Urea Nitrogen 16 mg/dL (6-20); Calcium 9.4 mg/dL (8.5-10.5); Carbon Dioxide 25 mmol/L (22-29); Chloride 102 mmol/L (98-107); Creatinine Clr Calc Pharmacy 150.3101; Globulin 3.7 g/dL (1.3-4.6); Glucose 118 mg/dL (65-115); Osmolality Calculated 292 mOsm/kg (285-295); Potassium 4.2 mmol/L (3.5-5.1); Sodium 140 mmol/L (136-145); Thyroid Stimulating Hormone 2.47 uIU/mL (0.27-4.20); Total Bilirubin 0.6 mg/dL (0.15-1.2); Total Protein 7.8 g/dL (6.6-8.7)
[2020-05-24 18:50] LABS: Acetaminophen < 5.0 ug/mL (10-30); Alcohol Level < 10 mg/dL (0-10); Salicylate < 0.3 mg/dL (3-10)
--- NOTE | 2020-05-24 19:41 | PC.NURSE ---
[place] [employer] office was with patient in room until 193 when [employer] relayed to ED charge nurse that patient was not in custody, police office left facility.
--- NOTE | 2020-05-24 20:12 | PM.HP ---
Providers/Chief Complaint Primary Care Provider: DAHLIA Turner Chief Complaint: Hypoxic hanging History of Present Illness Manjit Lr is a 39 year old male was brought in from the local longterm. Reportedly he was witnessed to hang himself with a metal phone cord in his cell. Patient is stating that he was arrested at a public place when he was alerted restraining orders and was not cooperating with the police officer booking. He is not giving me any other details. For most of my questions he is stating I do not remember . In the ER he was given steroids and Ativan, no neck swelling has been noticed however has cord ryan around his neck, investigation of cervical soft tissue did not reveal any edema, patient has mild hoarseness of voice otherwise no stridor or wheezing. He has been put on 96-hour hold, will be monitored in the ICU CT head unremarkable no abnormality found on CBC or BMP, drug screen unremarkable. on chest x-ray no subglottic or tracheal narrowing. At the time my evaluation no active stridor or wheezing no active respiratory distress he was saturating well on room air normal hemodynamics he was verbally redirectable, awake alert oriented x3 but somnolent after getting Ativan able to protect his airways, good cough reflex no neurological deficit. Review of Systems Const: Denies: fever(s) Eyes: Denies: change in vision ENMT: Reports: throat pain Card: Denies: chest pain Resp: Denies: dyspnea GI: Denies: abdominal pain : Denies: flank pain Musc: Denies: neck pain Skin/Breast: Denies: rash Neuro: Denies: headache(s) Psych: Reports: depression, hopelessness, loss of interest and suicidal ideation; Denies: anxiety Endo: Denies: polyuria George/Lymph: Denies: easy bruising All/Imm: Denies: urticaria Medications/Allergies Home Medications Medication Instructions Recorded Confirmed Last Taken Type atorvastatin 20 mg tablet 20 mg PO DAILY #30 tab 02/18/20 05/12/20 Unknown Rx hydroxyzine pamoate 25 mg capsule 25 mg PO BID PRN #60 cap 02/18/20 05/12/20 Unknown Rx omeprazole 20 mg capsule,delayed 20 mg PO BID #60 cap 02/18/20 05/12/20 Unknown Rx release citalopram 20 mg tablet 20 mg PO DAILY #30 tab 05/05/20 05/12/20 Unknown Rx Allergies Allergy/AdvReac Type Severity Reaction Status Date / Time morphine Allergy Unknown Unknown Verified 11/21/19 14:46 acetaminophen Allergy ALGY-Swell Verified 11/21/19 14:46 Lip/Tongue/Throat aspirin Allergy ALGY-Rash Verified 11/21/19 14:46 bacitracin Allergy ALGY-Hives Verified 05/11/20 20:09 [From Triple Antibiotic] insect venom Allergy ALGY-Anaphy Verified 11/21/19 14:46 laxis neomycin Allergy ALGY-Hives Verified 05/11/20 20:09 [From Triple Antibiotic] Penicillins Allergy ALGY-Rash Verified 11/21/19 14:46 polymyxin B Allergy ALGY-Hives Verified 05/11/20 20:09 [From Triple Antibiotic] PFSH Acute PFSH: Medical History (Updated 05/24/20 @ 20:45 by Christian Smith MD) Adjustment disorder with mixed disturbance of emotions and conduct Anxiety and depression Hepatitis C Hyperlipidemia Surgical History History of excision of pilonidal cyst Hx of arthroscopy of left knee Hx of cholecystectomy Hx of rhinoplasty Family History Grandmother Diabetes Hypertension Mother Diabetes Father Hypertension Social History Smoking and tobacco status: current every day smoker cigarettes Packs smoked per day: 1 Years cigarettes smoked: 20 Second hand smoke exposure: Yes Alcohol intake: never Lives independently: Yes Household members: spouse Housing: House Marital status: Current occupational status: disabled History of recent travel: No Current gender identity: Male Vitals/I&O/Wt Last Vital Signs Temp 97.5 F L 05/24/20 17:48 Pulse 75 05/24/20 19:37 Resp 17 05/24/20 19:37 BP 139/91 05/24/20 19:37 Pulse Ox 96 05/24/20 19:37 Weight last 48 hrs Weight 108.862 kg Physical Exam Narrative: EXAM NARRATIVE: male with unkept appearance No active hoarseness of voice stridor or wheezing no acute respiratory distress He is somnolent after getting Ativan however verbally redirectable GCS 15 awake alert oriented x3 No neurological deficit Good cough reflex Cord david noted around the neck otherwise no significant edema at the time of my evaluation No active chest discomfort No acute respiratory distress Abdomen soft nontender Lower extremity no cellulitis gangrene ulcer Excessive dirt david on his feet No joint swelling Multiple skin tattoos noted Data : 05/24/20 18:10 05/24/20 18:10 A&P Assessment and plan (1) Suicidal behavior with attempted self-injury: 96-hour hold Witnessed incident of patient hanging himself in his cell with metal phone cord I would continue his SSRI monitor overnight in the ICU for any delayed presentation however no active stridor wheezing or acute respiratory distress Neck imaging did not reveal acute pathological findings He will be transferred to neuropsychiatric unit in the morning, Dr. Ambriz notified EKG incomplete right bundle branch block no active chest pain or shortness of breath Blood work is unremarkable I would obtain drug screen because of history of polysubstance abuse I would add folic acid and thiamine as well Status: Acute Attestations Medical Necessity Statement*: 96-hour hold anticipating stay in the hospital for more than 2 midnights for suicide attempt Time Spent in Patient Care: (>than 50% of time spent in counselling and/or direct pt care on unit). 45mins Coding Level of Care Code Acute Electrical Wiring Lineman for Amarilys Joshi Diagnoses Suicidal behavior with attempted self-injury T14.91XA
--- NOTE | 2020-05-24 21:20 | PC.NURSE ---
Report called to Anuradha GEORGE ICU nurse at [phone]
--- NOTE | 2020-05-24 21:30 | PC.NURSE ---
Admit Note Arrived to floor from ED at this time. Suicide precautions in place. 96hr hold paperwork reviewed. 1:1 accompanying patient at bedside. Pt is drowsy, oriented to person only. pt thinks he is at a gladiator school. calm and cooperative with admission assessment. Pt is unable to inform nurse of home medications. Incontinent of urine on arrival to unit. Pt cleansed and placed in clean gown. Pt placed on bedside pvc monitor. Large lump with abrasion noted to upper forehead (around hairline).
[2020-05-25] VITALS (18 sets, daily range): BP systolic 108–145; BP diastolic 61–94; PULSE 85–115; RESP 14–30; TEMP 36.4; O2SAT 89–99
[2020-05-25] MEDS: OLANZapine 10 mg VIAL 5 MG IM (00:10)
[2020-05-25] MEDS: enoxaparin 40 mg/0.4 mL Syringe SUBCUT (00:11)
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
[2020-05-25] MEDS: LORazepam 2 mg/mL INJ 1 mL IVP (00:22)
[2020-05-25] MEDS: OLANZapine 10 mg VIAL 15 MG IM (00:33)
--- NOTE | 2020-05-25 02:55 | PC.NURSE ---
Update on status Pt is awake currently calm but making frequent position changes from left to right in bed. Awakens, speech is confused and slurred with verbalization. Verbalizing i wanna go home . Pt does continues to take off monitoring devices. RR 16. 1:1 sitter remains at bedside.
[2020-05-25 04:32] LABS: Basophils % 0.1 %; Hemoglobin 15.4 g/dL (11.7-16.6); Lymphocytes # 0.7 10^3/uL (0.8-4.8); Lymphocytes % 5.2 %; Mean Corpuscular HGB Conc 32.8 g/dL (30.0-36.0); Mean Corpuscular Hemoglobin 29.3 pg (28.0-34.0); Mean Corpuscular Volume 89.5 fL (80-94); Mean Platelet Volume 10.7 fL (7.4-10.4); Monocytes # 0.1 10^3/uL (0.2-0.9); Neutrophils # 13.15 10^3/uL (1.8-7.7); Neutrophils % 93.4 %; Nucleated Red Blood Cells % 0 %; Platelet Count 373 10^3/cmm (130-400); Red Blood Count 5.25 10^6/uL (4.1-5.3); White Blood Count 14.1 10^3/uL (4.0-10.0)
--- NOTE | 2020-05-25 05:47 | PC.NURSE ---
Addendum entered by Suyapa Lee RN 05/25/20 05:48: Witnessed waste of 300mg of ketamine with Anuradha Iqbal RN. Original Note: Waste of medication 300mg ketamine wasted with Collette Lee RN at this time.
--- NOTE | 2020-05-25 06:16 | PC.NURSE ---
Agitation Pt verbalizing needing to use urinal. Nurse offered assistance. Yelled and cussed at nurse, not wanting a female to assist. A male was sent to room to assist pt to use urinal. Pt threw urinal across room. continue to cuss, repetitively saying im ready to go home . Pt back in bed, continues to not leave monitor on. 1:1 remains at bedside.
--- NOTE | 2020-05-25 07:17 | PC.NURSE ---
code 10 This nurse was in another patients room and heard yelling coming from patients room. Patient was standing in room naked and shouting at nursing staff that he wanted a gown and urinal. Code 10 was called and patient stated he just needed to urinate then began beating his bed rails when staff handed him urinal. All staff was present at this time. Patient urinated in urinal and handed it to staff and got back in bed. Resting with eyes closed at this time. Respirations even and non labored.
[2020-05-25] MEDS: pantoprazole DR 40 mg Tablet PO (07:53)
--- NOTE | 2020-05-25 08:30 | PC.NURSE ---
Behavior Patient has been agitated all shift. Shouting out from room jumping up out of bed and attempting to flip over bed. Security and house player have been present. Patient has been able to sit back in bed and lay down without force after every episode. This nurse attempted to give patient his morning medications and patient threw pills across room and smashed water over his head. Will continue to monitor patient. 1:1 sitter still present.
[2020-05-25] MEDS: citalopram 20 mg Tablet PO (08:50)
[2020-05-25] MEDS: atorvastatin 40 mg Tablet 20 MG PO (08:50)
[2020-05-25] MEDS: thiamine 100 mg Tablet PO (08:50)
[2020-05-25] MEDS: folic acid 1 mg Tablet PO (08:50)
[2020-05-25] MEDS: citalopram 20 mg Tablet 40 MG PO (10:05)
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
--- NOTE | 2020-05-25 14:39 | PC.NURSE ---
Discharge Patient was discharged at 1405 with discharge papers and belongings in hand. Patient refused to let nurse take vitals before he left facility but was calm and cooperative with staff. Patient was taken to ER entrance and was met by transportation company.
--- NOTE | 2020-05-26 16:39 | PC.RESP ---
Smoking Cessation information sent to patient.
== END 2020-05-25 14:05 | disposition home or self-care (01) | DRG 923 ==
LOC: ER 19:47 → ICU 20:41
PROVIDERS: Family Medicine; Admitting Provider Internal Medicine; Emergency Provider Emergency Medicine; PCP Nurse Practitioner Family; Visit Provider Internal Medicine
DX: T71.162A Asphyxiation due to hanging, intentional self-harm, initial encounter (principal); E78.5 Hyperlipidemia, unspecified; B19.20 Unspecified viral hepatitis C without hepatic coma; F41.8 Other specified anxiety disorders; F17.210 Nicotine dependence, cigarettes, uncomplicated
CPT/HCPCS: 12345; 36415; 36600; 70450; 70491; 71045; 72125; 80051; 80053; 80307; 82330; 82805; 83605; 84443; 85025; 93005; 96372; 99283; J1650; J2060; J2930; J3490; Q9967

== ENCOUNTER → 2023-03-07 18:03 | Outpatient (BNVA) | payer BC, MEDICAID, SELFPAY | PROVIDERS: PCP Nurse Practitioner Family; Visit Provider Nurse Practitioner Family | DX: F41.9 Anxiety disorder, unspecified (principal); E78.5 Hyperlipidemia, unspecified; Z91.038 Other insect allergy status | CPT/HCPCS: 80053; 80061; 84443; 85025 ==

== ENCOUNTER 2023-07-02 17:43 | Inpatient (IN) | payer BC, SELFPAY ==
[2023-07-02 17:45] VITALS: BMI 32.9
[2023-07-02 17:52] VITALS: BP 154/82; PULSE 73; RESP 16; TEMP 36.6; O2SAT 98
--- NOTE | 2023-07-02 18:06 | ECG_ITS ---
[facility] Test Date: 2023-07-02 Pat Name: Manjit Lr Department: Room: Gender: Male Plastic Surgery Assistant: : 1980 Requested By: Brandon Maharaj Order Number: [id number] Silverio MD: Hardik Joel M.D. Measurements Intervals Delta Rate: 62 P: 132 WY: 159 QRS: 114 QRSD: 112 T: 140 QT: 393 QTc: 402 Interpretive Statements SINUS RHYTHM ARM LEADS REVERSED [INVERTED P AND QRS IN I] Compared to ECG 05/24/2020 19:34:39 No significant changes Electronically Signed On 07-03-2023 10:23:40 CDT by Hardik Joel M.D. [id number]
[2023-07-02 18:26] LABS: Amphetamines Screen Urine Positive (Negative); Barbiturates Screen Urine Negative (Negative); Benzodiazepines Screen Urine Negative (Negative); Cocaine Screen Urine Negative (Negative); Opiate Screen Urine Negative (Negative); PCP Screen Urine Negative (Negative); THC Screen Urine Positive (Negative)
[2023-07-02 18:32] LABS: Blood Urine 2+ (Negative); Glucose Urine UA Norm (Normal); Ketones Urine Negative (Negative); Protein Urine Neg (Negative); Specific Gravity, Urine 1.015 (1.005-1.030); Urine Appearance Clear (CLEAR); Urine Color Yellow (Yellow); pH Urine 5 (5-7)
[2023-07-02 18:33] LABS: Add Urine Microscopic? YES; Bacteria Urine TRACE /hpf; Bilirubin Urine Neg (Negative); Coarse Granular Casts Urine 0-4 /lpf; Hyaline Casts Urine 0-4 /lpf; Leukocyte Esterase Urine Negative (Negative); Mucus Urine 1+ /hpf; Nitrate Urine Negative (Negative); RBC Urine 0-4 /hpf (0-2); Squamous Epithelial Cell Urine 0-4 /hpf (0-5); Urobilinogen Urine Neg (Negative); WBC Urine 0-4 /hpf (0-5)
[2023-07-02 18:36] LABS: Basophils # 0.1 10^3/uL (0.0-0.1); Basophils % 0.6 %; Eosinophils # 0.3 10^3/uL (0.0-0.8); Eosinophils % 2.2 %; Hematocrit 47.1 % (37-53); Lymphocytes # 1.8 10^3/uL (0.8-4.8); Lymphocytes % 14.5 %; Mean Corpuscular HGB Conc 32.3 g/dL (30-55); Mean Corpuscular Hemoglobin 29.8 pg (27-33); Mean Corpuscular Volume 92.4 fl (82-101); Mean Platelet Volume 10.8 fL (7.4-10.4); Monocytes % 7.7 %; Neutrophils # 9.28 10^3/uL (1.8-7.7); Neutrophils % 74.7 %; Nucleated Red Blood Cells % 0 %; Platelet Count 315 10^3/cmm (157-399); Red Cell Distribution Width 13.2 % (12.1-15.1); White Blood Count 12.44 10^3/uL (3.29-11.43)
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
[2023-07-02 18:57] LABS: Alanine Aminotransferase 19 U/L (0-41); Albumin Level 4.2 g/dL (3.5-5.2); Alkaline Phosphatase 97 U/L (40-130); Anion Gap 14.3 (5-19); Aspartate Amino Transferase 30 U/L (0-40); Blood Urea Nitrogen 17 mg/dL (6-20); Calcium 9.7 mg/dL (8.5-10.5); Carbon Dioxide 27 mmol/L (22-29); Chloride 104 mmol/L (98-107); Creatinine Clr Calc Pharmacy 142.0661; Globulin 2.7 g/dL (1.3-4.6); Glomerular Filtration Rate 81.2 mL/min (90-130); Glucose 101 mg/dL (65-115); Osmolality Calculated 292 mOsm/kg (285-295); Potassium 5.3 mmol/L (3.5-5.1); Sodium 140 mmol/L (136-145); Total Bilirubin 0.3 mg/dL (0.15-1.2); Total Protein 6.9 g/dL (6.6-8.7)
[2023-07-02 18:58] LABS: Acetaminophen < 5.0 ug/mL (10-30); Alcohol Level < 10 mg/dL (0-10); Salicylate < 0.3 mg/dL (3-10)
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
--- NOTE | 2023-07-02 19:05 | PC.NURSE ---
Attempted to read 96 hour hold rights to patient. Patient stated he has already been on a hold before, i dont want you to read that to me. Copy of rights given to patient.
--- NOTE | 2023-07-02 19:05 | PC.NURSE ---
pt transfer of care/ shift change pt nurse introduced this nurse. pt cooperative with this nurse at this time.
[2023-07-03 01:01] VITALS: BP 146/74; PULSE 64; O2SAT 99
[2023-07-03 05:33] VITALS: BP 136/87; PULSE 80; RESP 18; O2SAT 97
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
[2023-07-03 14:00] VITALS: BP 137/81; PULSE 88; RESP 14; TEMP 36.6; O2SAT 97
[2023-07-03 19:54] VITALS: BP 126/73; PULSE 87; RESP 16; TEMP 36.4; O2SAT 98
[2023-07-03] MEDS: citalopram 20 mg Tablet 40 MG PO (20:25)
[2023-07-03] MEDS: paliperidone ER 6 mg Tablet PO (20:26)
[2023-07-03] MEDS: hyDROXYzine 25 mg Capsule 50 MG PO (20:26)
[2023-07-03] MEDS: escitalopram 10 mg Tablet PO (20:26)
[2023-07-04 06:00] VITALS: BP 119/76; PULSE 105; RESP 17; TEMP 36.6; O2SAT 98
[2023-07-04] MEDS: paliperidone ER 6 mg Tablet PO (09:20)
[2023-07-04] MEDS: citalopram 20 mg Tablet 40 MG PO (09:20)
[2023-07-04] MEDS: escitalopram 10 mg Tablet PO (09:20)
[2023-07-04 14:00] VITALS: BP 118/71; PULSE 84; RESP 16; TEMP 36.6; O2SAT 98
--- NOTE | 2023-07-04 18:46 | P.NPUPN_ITS ---
Subjective NPU 2 Subjective: Patient presented today reporting that he was upset because he feels a staff member told him that group was mandatory. Staff report that they did wake him up and encourage him to go to group but that he responded very oppositionally. He then got very upset and was wanting to try to argue the semantics of what was said and whether it was recommended or being forced. Later he was saying he felt better and wanted to be discharged to go home and help his father. We discussed the importance of him demonstrating his ability to manage his anger while on this 96-hour hold. He denied any side effects of the medications thus far. Mental Status Exam 2 MSE Comments: This is a tall obese white male in hospital scrubs with limited grooming and eye contact with a ecchymosis or bruising under his right eye. No abnormal movements except for psychomotor retardation. Cooperative with exam and moderate and at times extreme distress. Speech was increased rate and volume.. Mood described as upset and angry, affect congruent and irritable. Thought process organized. Thought content: Patient reports daily suicidal thoughts, hearing voices, anxiety, and depression. Experiences nightmares and flashbacks related to past traumas. No signs of paranoia or hallucinations. He denied homicidal ideation but was fairly aggressive today towards a staff member that angered him, no delusions reported but occasional paranoia reported but not noted, he denied any current auditory or visual hallucinations. Attention and concentration were intact and memory was somewhat reliable but none were formally tested. He is alert and oriented x 3. Insight and judgment limited impulse control limited. Vitals/I&O/Wt Last Vital Signs Temp 97.8 F 07/04/23 14:00 Pulse 84 07/04/23 14:00 Resp 16 07/04/23 14:00 BP 118/71 07/04/23 14:00 Pulse Ox 98 07/04/23 14:00 O2 Del Method Room Air 07/04/23 14:00 Weight last 48 hrs Weight 129.274 kg Data NPU 07/02/23 18:27 07/02/23 18:27 A&P Assessment and plan (1) Suicidal ideations: (2) Aggression: (3) Polysubstance abuse: (4) Anxiety and depression: (5) Psychosis: (6) Methamphetamine use disorder, moderate, dependence: Plan This is a 42-year-old white male with a long history of mental health and addiction issues who presented on a 96-hour hold endorsing that he is struggling with severe mental health issues, including suicidal ideation, auditory hallucinations, and depression. Current medication regimen does not seem to be fully effective. 1. Continue current medication. Added Lexapro 10 mg p.o. daily with a plan to transition over to Lexapro 30 mg p.o. daily from the Celexa 40 mg. And added Invega 6 mg p.o. daily. 2. Encourage individual, group and milieu therapy. 3. Continue q-15 minute checks for safety.? 4.? Recommend sober living treatment at the highest level of care to which the patient is willing to commit. 5. Patient will work with social work team to explore long-term care options that might exist. Involuntary Hold Information 2 96 Hour Hold: 96 Hour Involuntary Admission: Yes 96 Hour Hold Ending Date: 07/08/23 96 Hour Hold Ending Time: 00:01 Attestations NPU 2 Medical Necessity Statement*: Inpatient hospitalization is medically necessary and deemed to ?be ?the clinically appropriate intervention ?at this time.? We will monitor/initiate medications and make changes as indicated.? The patient?s likely length of stay 4-6 days. Coding Level of Care Code Acute Code for [facility] Fwd Diagnoses Suicidal ideations R45.851 Aggression R46.89 Polysubstance abuse F19.10 Anxiety and depression F41.9; F32.9 Psychosis F29 Methamphetamine use disorder, moderate, dependence F15.20
[2023-07-04 20:18] VITALS: BP 100/67; PULSE 110; RESP 18; TEMP 36.5; O2SAT 97
[2023-07-05 06:00] VITALS: BP 124/73; PULSE 92; RESP 18; TEMP 36.6; O2SAT 97
[2023-07-05] MEDS: escitalopram 10 mg Tablet PO (08:06)
[2023-07-05] MEDS: citalopram 20 mg Tablet 40 MG PO (08:06)
[2023-07-05] MEDS: paliperidone ER 6 mg Tablet PO (08:06)
--- NOTE | 2023-07-05 12:23 | P.NPUPN_ITS ---
Subjective NPU 2 Subjective: Patient presented today seeming like he was doing better than yesterday and not having significant agitation or problems. However this all melted away the moment he had concerns that he might not be discharged today. We discussed making sure we have clear and transparent treatment plans and he was reporting some plans that involved his dad's director aeronautics commission getting him in some kind of rehab but he was unwilling to report specifically what rehab so that we could verify for him. He once again lost his temper and was being agitated in his room. He denied any side effects to the medication but was very frustrated about not being let go. Mental Status Exam 2 MSE Comments: This is a tall obese white male in hospital scrubs with limited grooming and eye contact with a ecchymosis or bruising under his right eye. No abnormal movements except for psychomotor retardation. Cooperative with exam and moderate and at times extreme distress. Speech was increased rate and volume.. Mood described as upset and angry, affect congruent and irritable. Thought process organized. Thought content: Patient reports daily suicidal thoughts, hearing voices, anxiety, and depression. Experiences nightmares and flashbacks related to past traumas. No signs of paranoia or hallucinations. He denied homicidal ideation but was fairly aggressive today towards a staff member that angered him, no delusions reported but occasional paranoia reported but not noted, he denied any current auditory or visual hallucinations. Attention and concentration were intact and memory was somewhat reliable but none were formally tested. He is alert and oriented x 3. Insight and judgment limited impulse control limited. Vitals/I&O/Wt Last Vital Signs Temp 97.8 F 07/05/23 06:00 Pulse 92 07/05/23 06:00 Resp 18 07/05/23 06:00 BP 124/73 07/05/23 06:00 Pulse Ox 97 07/05/23 06:00 O2 Del Method Room Air 07/04/23 14:00 Data NPU 07/02/23 18:27 07/02/23 18:27 A&P Assessment and plan (1) Suicidal ideations: (2) Aggression: (3) Polysubstance abuse: (4) Anxiety and depression: (5) Psychosis: (6) Methamphetamine use disorder, moderate, dependence: Plan This is a 42-year-old white male with a long history of mental health and addiction issues who presented on a 96-hour hold endorsing that he is struggling with severe mental health issues, including suicidal ideation, auditory hallucinations, and depression. Current medication regimen does not seem to be fully effective. 1. Continue current medication. Added Lexapro 10 mg p.o. daily with a plan to transition over to Lexapro 30 mg p.o. daily from the Celexa 40 mg. And added Invega 6 mg p.o. daily. 2. Encourage individual, group and milieu therapy. 3. Continue q-15 minute checks for safety.? 4.? Recommend sober living treatment at the highest level of care to which the patient is willing to commit. 5. Patient will work with social work team to explore long-term care options that might exist. Patient has begun backtracking commitment to sober living treatment to any degree and is trying to get the 96-hour hold shortening because he reports he has very important things that he has to do. Involuntary Hold Information 2 96 Hour Hold: 96 Hour Involuntary Admission: Yes 96 Hour Hold Ending Date: 07/08/23 96 Hour Hold Ending Time: 00:01 Attestations NPU 2 Medical Necessity Statement*: Inpatient hospitalization is medically necessary and deemed to ?be ?the clinically appropriate intervention ?at this time.? We will monitor/initiate medications and make changes as indicated.? The patient?s likely length of stay 2-5 days. Coding Level of Care Code Acute Code for [employer] Fwd Diagnoses Suicidal ideations R45.851 Aggression R46.89 Polysubstance abuse F19.10 Anxiety and depression F41.9; F32.9 Psychosis F29 Methamphetamine use disorder, moderate, dependence F15.20
[2023-07-05 14:00] VITALS: BP 135/80; PULSE 97; RESP 16; TEMP 36.6; O2SAT 96
[2023-07-05 20:03] VITALS: BP 122/68; PULSE 128; RESP 20; TEMP 37.1; O2SAT 97
[2023-07-06 06:00] VITALS: BP 110/72; PULSE 101; RESP 18; TEMP 36.8; O2SAT 96
[2023-07-06] MEDS: escitalopram 10 mg Tablet PO (07:45)
[2023-07-06] MEDS: citalopram 20 mg Tablet 40 MG PO (07:45)
[2023-07-06] MEDS: paliperidone ER 6 mg Tablet PO (07:45)
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
[2023-07-06 13:06] VITALS: BP 125/71; PULSE 90; RESP 18; TEMP 36.2; O2SAT 97
[2023-07-06 13:11] VITALS: BP 125/71; PULSE 90; RESP 18; TEMP 36.2; O2SAT 97
--- NOTE | 2023-07-06 13:47 | PC.NURSE ---
written discharge instruction discussed and left with patient. pt stated understanding and compliance. pt to leave with parent in pov. medication presscription delivered by [facility].
== END 2023-07-06 14:45 | disposition home or self-care (01) | DRG 886 ==
LOC: ER 19:16 → NP 07-03 03:56
PROVIDERS: Admitting Provider Psychiatry & Neurology Psychiatry; Emergency Provider Internal Medicine; PCP Nurse Practitioner Family; Visit Provider Psychiatry & Neurology Psychiatry
DX: F91.1 Conduct disorder, childhood-onset type (principal); R45.851 Suicidal ideations; F31.9 Bipolar disorder, unspecified; F17.210 Nicotine dependence, cigarettes, uncomplicated; F12.10 Cannabis abuse, uncomplicated; F15.10 Other stimulant abuse, uncomplicated; F10.90 Alcohol use, unspecified, uncomplicated; F43.25 Adjustment disorder with mixed disturbance of emotions and conduct; E78.5 Hyperlipidemia, unspecified; F41.9 Anxiety disorder, unspecified; E66.9 Obesity, unspecified; Z68.32 Body mass index [BMI] 32.0-32.9, adult; Z86.19 Personal history of other infectious and parasitic diseases
CPT/HCPCS: 80053; 80306; 80307; 81001; 85025; 93005; 97150; 97165; 99285

== ENCOUNTER 2024-09-23 23:51 | Emergency (ER) | payer MEDICAID, SELFPAY ==
[2024-09-23 23:55] VITALS: BP 144/94; PULSE 69; RESP 16; TEMP 36.4; O2SAT 98; BMI 24.0
--- NOTE | 2024-09-24 00:03 | W.ED.PSYCHS ---
HPI - Psych General: Stated Complaint: AUDITORY HALLUCINATIONS Time Seen by Provider: 09/23/24 23:56 History of Present Illness: 43-year-old male patient presents to the emergency department in police custody. Patient states that he takes medication for hearing voices but has been out of it and just recently started and today started hearing voices. Patient states these voices are telling him to kill himself. Patient states this has happened in the past and he tried to hang himself while incarcerated. Patient states he felt it was better to get on top of it and come in earlier rather than later. Related Data Previous Rx's ?Medication ?Instructions ?Recorded epinephrine 0.3 mg/0.3 mL 0.3 mg (0.3 mL) IM Q4H PRN 03/07/23 injection, auto-injector (EpiPen anaphylaxis #2 ea 2-Duc) aripiprazole 10 mg tablet 10 mg PO QAM #30 tabs 09/20/24 atorvastatin 10 mg tablet (Lipitor) 10 mg PO .QPM #30 tabs 09/20/24 venlafaxine 75 mg capsule,extended 75 mg PO QAM #30 caps 09/20/24 release 24 hr Allergies Allergy/AdvReac Type Severity Reaction Status Date / Time morphine Allergy Unknown Unknown Verified 09/20/24 13:59 acetaminophen Allergy ALGY-Swell Verified 09/20/24 13:59 Lip/Tongue/Throat aspirin Allergy ALGY-Rash Verified 09/20/24 13:59 bacitracin (From Triple Allergy ALGY-Hives Verified 09/20/24 13:59 Antibiotic) insect venom Allergy ALGY-Anaphy Verified 09/20/24 13:59 laxis neomycin (From Triple Allergy ALGY-Hives Verified 09/20/24 13:59 Antibiotic) Penicillins Allergy ALGY-Rash Verified 09/20/24 13:59 polymyxin B (From Triple Allergy ALGY-Hives Verified 09/20/24 13:59 Antibiotic) Review of Systems General: Reports: 10 or more systems reviewed and unremarkable except in HPI and below PFSH ED PFSH: Medical History Adjustment disorder with mixed disturbance of emotions and conduct Hepatitis C Hyperlipidemia Anxiety and depression Surgical History Hx of cholecystectomy Hx of rhinoplasty History of excision of pilonidal cyst Hx of arthroscopy of left knee Family History Grandmother Diabetes Hypertension Mother Diabetes Father Hypertension Social History Smoking and tobacco/nicotine status: tobacco/nicotine user, details unknown cigarettes Packs smoked per day: 1 Years cigarettes smoked: 20 Second hand smoke exposure: Yes Alcohol intake: unknown Substance/Drug Use: unknown Housing: Other Details: incarcerated Marital status: service: No Current occupational status: disabled Do you think of yourself as: Straight/Heterosexual Current gender identity: Male Special viktor needs: No Physical Exam Narrative: EXAM NARRATIVE: Physical Exam: Constitutional: Alert, no acute distress, well hydrated, well nourished. HEENT: ERICA, no nasal drainage Cardiovascular: RRR Respiratory: No respiratory distress, no accessory muscle use, clear to auscultation. Skin: Normal color, no rashes, no unusual bruising. Neuro: station & gait within limits of hand and feet shackles Psych: Oriented to all spheres, normal affect accompanied by retirement staff Psych: COMMON NORMALS: denies homicidal ideation; negative for denies suicidal ideation MDM - Psych Medical Decision Making 43-year-old male patient presents to the emergency department in police custody. Patient states that he takes medication for hearing voices but has been out of it and just recently started and today started hearing voices. Patient states these voices are telling him to kill himself. Patient states this has happened in the past and he tried to hang himself while incarcerated. Patient states he felt it was better to get on top of it and come in earlier rather than later. Given patient's admission to suicidal ideation and past attempts of suicidal ideation I will plan for behavioral consult and admission for psychiatric stabilization at this time. Labs are pending. Patient is cooperative and resting comfortably on bed . care will be transitioned to Dr. Cody at this time No radiology studies performed this visit Discharge Plan Discharge Condition: Stable Prescriptions: No Action epinephrine [EpiPen 2-Duc] 0.3 mg/0.3 mL auto-injector 0.3 mg IM Q4H PRN (Reason: anaphylaxis) Qty: 2 0RF aripiprazole 10 mg tablet 10 mg PO QAM Qty: 30 2RF atorvastatin [Lipitor] 10 mg tablet 10 mg PO .QPM Qty: 30 1RF venlafaxine 75 mg capsule,extended release 24hr 75 mg PO QAM Qty: 30 2RF Referrals: Leena Munguia FNP [Primary Care Provider, Family Practice] Print Language: Czech Coding Level of Care Code ED Manager Loan for Angelg Madelyn
--- NOTE | 2024-09-24 00:27 | W.ED.PSYCHS ---
HPI - Psych General: Chief Complaint: Psychiatric Symptoms Stated Complaint: AUDITORY HALLUCINATIONS Time Seen by Provider: 09/23/24 23:56 History of Present Illness: duplicate chart please delete Related Data Previous Rx's ?Medication ?Instructions ?Recorded epinephrine 0.3 mg/0.3 mL 0.3 mg (0.3 mL) IM Q4H PRN 03/07/23 injection, auto-injector (EpiPen anaphylaxis #2 ea 2-Duc) aripiprazole 10 mg tablet 10 mg PO QAM #30 tabs 09/20/24 atorvastatin 10 mg tablet (Lipitor) 10 mg PO .QPM #30 tabs 09/20/24 venlafaxine 75 mg capsule,extended 75 mg PO QAM #30 caps 09/20/24 release 24 hr Allergies Allergy/AdvReac Type Severity Reaction Status Date / Time morphine Allergy Unknown Unknown Verified 09/20/24 13:59 acetaminophen Allergy ALGY-Swell Verified 09/20/24 13:59 Lip/Tongue/Throat aspirin Allergy ALGY-Rash Verified 09/20/24 13:59 bacitracin (From Triple Allergy ALGY-Hives Verified 09/20/24 13:59 Antibiotic) insect venom Allergy ALGY-Anaphy Verified 09/20/24 13:59 laxis neomycin (From Triple Allergy ALGY-Hives Verified 09/20/24 13:59 Antibiotic) Penicillins Allergy ALGY-Rash Verified 09/20/24 13:59 polymyxin B (From Triple Allergy ALGY-Hives Verified 09/20/24 13:59 Antibiotic) PFSH ED PFSH: Medical History Adjustment disorder with mixed disturbance of emotions and conduct Hepatitis C Hyperlipidemia Anxiety and depression Surgical History Hx of cholecystectomy Hx of rhinoplasty History of excision of pilonidal cyst Hx of arthroscopy of left knee Family History Grandmother Diabetes Hypertension Mother Diabetes Father Hypertension Social History Smoking and tobacco/nicotine status: tobacco/nicotine user, details unknown cigarettes Packs smoked per day: 1 Years cigarettes smoked: 20 Second hand smoke exposure: Yes Alcohol intake: unknown Substance/Drug Use: unknown Housing: Other Details: incarcerated Marital status: service: No Current occupational status: disabled Do you think of yourself as: Straight/Heterosexual Current gender identity: Male Special viktor needs: No Course Vital Signs: Vital signs: Vital Signs Temperature 97.6 F 09/23/24 23:55 Pulse Rate 69 09/23/24 23:55 Respiratory Rate 16 09/23/24 23:55 Blood Pressure 144/94 09/23/24 23:55 Pulse Oximetry 98 09/23/24 23:55 Oxygen Delivery Me thod Room Air 09/23/24 23:55 MDM - Psych Medical Decision Making duplicate chart please delete No radiology studies performed this visit Discharge Plan Discharge Condition: Stable Prescriptions: No Action epinephrine [EpiPen 2-Duc] 0.3 mg/0.3 mL auto-injector 0.3 mg IM Q4H PRN (Reason: anaphylaxis) Qty: 2 0RF aripiprazole 10 mg tablet 10 mg PO QAM Qty: 30 2RF atorvastatin [Lipitor] 10 mg tablet 10 mg PO .QPM Qty: 30 1RF venlafaxine 75 mg capsule,extended release 24hr 75 mg PO QAM Qty: 30 2RF Referrals: Leena Munguia FNP [Primary Care Provider, Family Practice] Print Language: Setswana Coding Level of Care Code ED 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
--- NOTE | 2024-09-24 00:37 | ECG_ITS ---
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 Measurements Intervals [place] Rate: 69 P: 67 HI: 168 QRS: 72 QRSD: 114 T: 42 QT: 384 QTc: 414 Interpretive Statements SINUS RHYTHM MODERATE INTRAVENTRICULAR CONDUCTION DELAY [110+ ms QRS DURATION] ST ELEVATION, PROBABLY EARLY REPOLARIZATION [ST ELEVATION WITH NORMALLY INFLECTED T-WAVE] Compared to ECG 07/02/2023 18:34:24 Intraventricular conduction delay now present ST (T wave) deviation now present Early repolarization now present Electronically Signed On 09-25-2024 11:38:18 CDT by Miah Aguilar M.D. [email or web address]
[2024-09-24 01:05] LABS: Basophils % 0.5 %; Eosinophils # 0.1 10^3/uL (0.0-0.8); Eosinophils % 1.2 %; Lymphocytes # 2.1 10^3/uL (0.8-4.8); Lymphocytes % 28.1 %; Mean Corpuscular HGB Conc 33.2 g/dL (30-55); Mean Corpuscular Hemoglobin 29.9 pg (27-33); Mean Corpuscular Volume 90.1 fl (82-101); Monocytes # 0.5 10^3/uL (0.2-0.9); Monocytes % 7.3 %; Neutrophils # 4.65 10^3/uL (1.8-7.7); Neutrophils % 62.6 %; Nucleated Red Blood Cells % 0 %; Platelet Count 250 10^3/cmm (157-399); Red Blood Count 4.55 10^6/uL (3.85-5.65); Red Cell Distribution Width 12.5 % (12.1-15.1); White Blood Count 7.43 10^3/uL (3.29-11.43)
[2024-09-24 01:13] LABS: Alanine Aminotransferase 11 U/L (0-41); Albumin Level 4.4 g/dL (3.5-5.2); Alkaline Phosphatase 78 U/L (40-130); Anion Gap 14.4 (5-19); Aspartate Amino Transferase 18 U/L (0-40); Blood Urea Nitrogen 12 mg/dL (6-20); Calcium 9.4 mg/dL (8.5-10.5); Carbon Dioxide 30 mmol/L (22-29); Chloride 99 mmol/L (98-107); Creatinine Clr Calc Pharmacy 152.6907; Globulin 3.1 g/dL (1.3-4.6); Glomerular Filtration Rate 104.5 mL/min (90-130); Glucose 88 mg/dL (65-115); Osmolality Calculated 287 mOsm/kg (285-295); Potassium 4.4 mmol/L (3.5-5.1); Sodium 139 mmol/L (136-145); Total Bilirubin 0.3 mg/dL (0.15-1.2); Total Protein 7.5 g/dL (6.6-8.7)
[2024-09-24 01:19] LABS: Acetaminophen < 5.0 ug/mL (10-30); Alcohol Level < 10 mg/dL (0-10); Salicylate < 0.3 mg/dL (3-10)
--- NOTE | 2024-09-24 01:30 | XRR_ITS ---
PROCEDURE INFORMATION: Exam: XR Chest Exam date and time: 09/24/2024 1:31 AM Age: 43 years old Clinical indication: Other: Medical clearance TECHNIQUE: Imaging protocol: Radiologic exam of the chest. Views: 1 view. COMPARISON: CR XR chest 1V portable [id number] 05/24/2020 6:17 PM FINDINGS: Lungs: Suggestion of mild focus of patchy airspace opacity at the left lung base, worrisome for developing infiltrate. Clinically correlate and consider follow-up two-view chest x-ray for further characterization if clinically indicated. Pleural spaces: Unremarkable. No pleural effusion. No pneumothorax. Heart/Mediastinum: Unremarkable. No cardiomegaly. Bones/joints: No suspicious osseous findings XR/XR chest 1V portable [id number] IMPRESSION: Left lower lung zone opacity as above.
[2024-09-24] MEDS: OLANZapine 10 mg ODT 20 MG PO (03:06)
[2024-09-24 03:11] VITALS: BP 148/82; PULSE 73; RESP 16; O2SAT 97
== END 2024-09-24 03:14 | disposition home or self-care (01) ==
PROVIDERS: Registered Nurse; Emergency Provider Emergency Medicine; PCP Nurse Practitioner Family
DX: R44.0 Auditory hallucinations (principal); R45.851 Suicidal ideations; F17.210 Nicotine dependence, cigarettes, uncomplicated; E78.5 Hyperlipidemia, unspecified
CPT/HCPCS: 36415; 71045; 80053; 80307; 85025; 93005; 99285; J9999